=== PATIENT | female | born 1955 | race Caucasian/White ===

== ENCOUNTER → 2017-02-20 | Outpatient (CLI) | payer BC ==
[~2017-02-20] MED LIST: CALC-656 PO; ERGO400T3 PO; ESTR1PAT34 TD; LUTE10TA2 PO; MULT-642 PO; OMG1KC PO; PRAV40TA2 PO; TELM1TAB20 PO
--- NOTE | 2017-02-20 09:41 | Diagnostic Imaging Report ---
INDICATION: Hypertension. FINDINGS: Right kidney measures 10 x 5 x 4.5 cm. Left kidney measures 10.4 x 5 x 4 cm. Renal cortex appears normal with a simple cyst on the left measuring approximately 1.4 x 2 cm. Doppler imaging is very limited due to body habitus and bowel gas. RIGHT: The arcuate resistive indices is 0.58 cm/s. The velocity in the renal artery is 78 cm/s distally and 109 cm/s proximally. Renal artery to aortic velocity is 1.1. LEFT: The resistive indices is 0.63 cm/s. The proximal renal artery shows peak velocity of 141 cm/s with distal velocity of 47 cm/s. The aorta to renal artery ratio is 1.4. IMPRESSION: Significantly limited detail was obtained in the Doppler images. Data acquired does not show hemodynamic stenosis of the renal arteries. Dictated by: Dictated on workstation # [id number]
== END ==
LOC: RAD 07:24
PROVIDERS: ATTEND Family Medicine
DX: I10 Essential (primary) hypertension (principal)
CPT/HCPCS: 93976